=== PATIENT | female | born 1955 | race Caucasian/White ===

== ENCOUNTER → 2017-01-18 | Outpatient (CLI) | payer OTHER | LOC: MC.RAD 07:40 | DX: Z12.31 Encounter for screening mammogram for malignant neoplasm of breast (principal) ==

== ENCOUNTER → 2017-01-18 | Outpatient (CLI) | payer OTHER ==
[2017-01-18 07:53] LABS: BASO % 0.5 % (0.0-2.0); EOS # 0.2 (0.0-0.7); EOS % 2.6 % (0-4.0); GRAN % 51.6 % (42.2-75.2); HEMOGLOBIN 13.6 g/dl (12.5-16.0); LYMPH # 2.2 (1.2-3.4); MEAN CELL VOLUME 90 fl (80.0-100.0); MEAN CORPUSCULAR HEMOGLOBIN 30 pg (27.0-31.0); MEAN CORPUSCULAR HGB CONC 33 g/dl (33.0-37.0); MEAN PLATELET VOLUME 10.1 fl (7.4-10.4); MONO # 0.5 (0.1-0.6); PLATELET COUNT 261 K/mm3 (130-400); RED BLOOD COUNT 4.54 M/mm3 (4.10-5.30); WHITE BLOOD COUNT 5.9 K/mm3 (4.8-10.8)
[2017-01-18 08:13] LABS: ADJUSTED CALCIUM 9.3 mg/dL (8.4-10.2); ALBUMIN 4.7 gm/dL (3.5-5.0); BILIRUBIN,TOTAL 0.9 mg/dL (0.0-1.0); CALCIUM 9.9 mg/dL (8.4-10.2); CREATININE, serum 0.91 mg/dL (0.52-1.25); POTASSIUM 4.1 mmol/L (3.4-5.0); TOTAL PROTEIN 8.1 gm/dL (6.4-8.2)
[2017-01-18 08:36] LABS: SQUAMOUS EPITHELIAL 0-2 /hpf; URINE BACTERIA None Seen /hpf; URINE RBC None Seen /hpf; URINE WBC 0-2 /hpf
[2017-01-18 08:42] LABS: THYROID STIMULATING HORMONE 3.25 uIU/mL (0.465-4.680)
== END ==
LOC: COL.LAB 07:15
PROVIDERS: Internal Medicine
DX: E78.5 Hyperlipidemia, unspecified (principal); Z00.00 Encounter for general adult medical examination without abnormal findings

== ENCOUNTER → 2017-03-06 | Outpatient (REF) | LOC: WSOH 16:15 | DX: Z02.89 Encounter for other administrative examinations (principal) ==

== ENCOUNTER → 2017-06-29 | Outpatient (CLI) | payer OTHER ==
[2017-06-29 08:34] LABS: HEMATOCRIT 41.6 % (37.0-47.0); HEMOGLOBIN 13.5 g/dl (12.5-16.0); MEAN CELL VOLUME 92 fl (80.0-100.0); MEAN CORPUSCULAR HEMOGLOBIN 30 pg (27.0-31.0); MEAN CORPUSCULAR HGB CONC 33 g/dl (33.0-37.0); MEAN PLATELET VOLUME 10.6 fl (7.4-10.4); PLATELET COUNT 276 K/mm3 (130-400); RED BLOOD COUNT 4.52 M/mm3 (4.10-5.30); REDCELL DISTRIBUTION WIDTH-CV 13.1 % (11.5-14.5)
[2017-06-29 08:36] LABS: MUCOUS Present /lpf; PH 6 (5-8); SQUAMOUS EPITHELIAL 0-2 /hpf; URINE APPEARANCE Clear; URINE BACTERIA None Seen /hpf; URINE BILIRUBIN Negative (NEGATIVE); URINE BLOOD Negative (NEGATIVE); URINE COLOR Yellow; URINE GLUCOSE Negative (NEGATIVE); URINE KETONE Negative (NEGATIVE); URINE LEUKOCYTE ESTERASE 1+ (NEGATIVE); URINE NITRATE Negative (NEGATIVE); URINE PROTEIN(semi-quant) Negative (NEGATIVE); URINE RBC 0-2 /hpf; URINE UROBILINOGEN Negative (NEGATIVE); URINE WBC 0-2 /hpf
[2017-06-29 08:39] LABS: COLLECTION METHOD CLEAN CATCH
[2017-06-29 09:00] LABS: ALBUMIN 4.9 gm/dL (3.5-5.0); BILIRUBIN,TOTAL 0.5 mg/dL (0.0-1.0); CALCIUM 9.6 mg/dL (8.4-10.2); CREATININE, serum 0.91 mg/dL (0.52-1.25); POTASSIUM 4.1 mmol/L (3.4-5.0); TOTAL PROTEIN 8.1 gm/dL (6.4-8.2)
== END ==
LOC: COL.CARD 06:42
PROVIDERS: Obstetrics & Gynecology
DX: N81.5 Vaginal enterocele (principal)

== ENCOUNTER 2017-07-07 12:07 | Inpatient (IN) | payer OTHER ==
[~2017-07-07] VITALS: Ht 165.1 cm; Wt 80.2 kg
[2017-07-17] VITALS (12 sets, daily range): BP systolic 88–134; BP diastolic 43–77; PULSE 58–81; TEMP 97.8–98.5
[2017-07-17] MEDS ORDERED: EFFEXOR-XR150 MG PO (07:22)
[2017-07-17] MEDS ORDERED: ZOCOR 20MG20 MG PO (07:23)
[2017-07-17] MEDS ORDERED: ZYRTEC 10MG10 MG PO (07:23)
[2017-07-17] MEDS ORDERED: NASACORT OTC NS (07:24)
[2017-07-17] MEDS ORDERED: SUDAFED30 MG PO (07:24)
[2017-07-17] MEDS ORDERED: XANAX .25M0.25 MG/TA PO (07:25)
[2017-07-17] MEDS ORDERED: EPA FISH OIL1 SGL PO (07:25)
[2017-07-17] MEDS ORDERED: WOMEN'S DAILY1 TAB PO ×2 (07:26→07:27)
[2017-07-17] MEDS ORDERED: ASPIRIN 81M81 MG/TA2 PO (07:26)
[2017-07-17] MEDS ORDERED: VITAMIN C500 MG PO (07:27)
[2017-07-17] MEDS ORDERED: PHARMASSURE ZIN50 MG PO (07:27)
[2017-07-17] MEDS ORDERED: CALCITRATE 3151 TAB PO (07:29)
[2017-07-17] MEDS ORDERED: VITAMIND3 5000 (07:30)
[2017-07-17] MEDS ORDERED: ANTIVERT 25MG25 MG PO (08:01)
[2017-07-18 05:16] VITALS: BP 104/58; PULSE 75; TEMP 98.7
[2017-07-18 07:00] VITALS: BP 102/57; PULSE 65; TEMP 98.4
[2017-07-18] MEDS ORDERED: IBU600 MG PO (08:29)
[2017-07-18] MEDS ORDERED: PERCOCET 325 MG1 TA2 PO (08:30)
[2017-07-18 09:23] VITALS: BP 108/62; PULSE 72; TEMP 98.2
== END 2017-07-18 13:05 | disposition home or self-care (01) | DRG 748 ==
LOC: INPTSU 07-17 06:53 → SURG 07-17 09:00 → OB 07-17 21:25
PROVIDERS: Obstetrics & Gynecology
PROC: 0USG0ZZ Reposition Vagina, Open Approach (ICD-10-PCS; principal; 2017-07-17 09:00)
PROC: 0JQC0ZZ Repair Pelvic Region Subcutaneous Tissue and Fascia, Open Approach (ICD-10-PCS; 2017-07-17 09:00)
DX: N81.2 Incomplete uterovaginal prolapse (principal); G47.33 Obstructive sleep apnea (adult) (pediatric)
CPT/HCPCS: A4314; C2631; J0690; J2704; J2765; J7120

== ENCOUNTER → 2017-09-14 | Outpatient (CLI) | payer OTHER ==
[~2017-09-14] MED LIST: ANTIVERT 25MG25 MG PO; ASPIRIN 81M81 MG/TA2 PO; CALCITRATE 3151 TAB PO; EFFEXOR-XR150 MG PO; EPA FISH OIL1 SGL PO; IBU600 MG PO; NASACORT OTC NS; PERCOCET 325 MG1 TA2 PO; PHARMASSURE ZIN50 MG PO; SUDAFED30 MG PO; VITAMIN C500 MG PO; VITAMIND3 5000; WOMEN'S DAILY1 TAB PO; XANAX .25M0.25 MG/TA PO; ZOCOR 20MG20 MG PO; ZYRTEC 10MG10 MG PO
[2017-09-14 08:40] LABS: ALBUMIN 4.3 gm/dL (3.5-5.0); BILIRUBIN,TOTAL 0.5 mg/dL (0.0-1.0); CALCIUM 9.4 mg/dL (8.4-10.2); CREATININE, serum 0.88 mg/dL (0.52-1.25); POTASSIUM 4.3 mmol/L (3.4-5.0); TOTAL PROTEIN 7.7 gm/dL (6.4-8.2)
== END ==
LOC: COL.LAB 08:14
PROVIDERS: Internal Medicine
DX: R73.01 Impaired fasting glucose (principal); R74.0 Nonspecific elevation of levels of transaminase and lactic acid dehydrogenase [LDH]

== ENCOUNTER → 2017-11-08 | Outpatient (CLI) | payer OTHER | LOC: SUN.DIA 13:00 | DX: R73.03 Prediabetes (principal); R73.01 Impaired fasting glucose | CPT/HCPCS: G0108 ==

== ENCOUNTER → 2018-06-06 | Outpatient (CLI) | payer OTHER ==
[~2018-06-06] MED LIST changes: +FORT1000TA PO; -VITAMIND3 5000; +VITAMIND3 5000 PO
== END ==
LOC: MC.RAD 15:00
DX: Z12.31 Encounter for screening mammogram for malignant neoplasm of breast (principal)

== ENCOUNTER 2018-06-08 08:48 | Day surgery (SDC) | payer OTHER ==
[~2018-06-08] VITALS: Ht 165.1 cm; Wt 75.5 kg
[~2018-06-08 08:48] MED LIST changes: -FORT1000TA PO
[2018-06-08] MEDS ORDERED: FORT1000TA PO (09:11)
[2018-06-08 09:46] VITALS: BP 118/73; PULSE 74; TEMP 97.7
[2018-06-08 10:45] VITALS: BP 100/69; PULSE 63; TEMP 97.8
[2018-06-08 11:00] VITALS: BP 111/67; PULSE 65
[2018-06-08 11:15] VITALS: BP 115/68; PULSE 75
[2018-06-08 11:30] VITALS: BP 112/68; PULSE 69
[2018-06-08 11:45] VITALS: BP 103/76; PULSE 73
== END 2018-06-08 12:10 | disposition home or self-care (01) ==
LOC: SDCO 08:48
DX: Z12.11 Encounter for screening for malignant neoplasm of colon (principal); Z86.010 Personal history of colon polyps; R13.13 Dysphagia, pharyngeal phase; K21.9 Gastro-esophageal reflux disease without esophagitis; G47.33 Obstructive sleep apnea (adult) (pediatric); E11.9 Type 2 diabetes mellitus without complications; Z79.82 Long term (current) use of aspirin; Z79.899 Other long term (current) drug therapy; Z79.84 Long term (current) use of oral hypoglycemic drugs; E78.00 Pure hypercholesterolemia, unspecified
CPT/HCPCS: J2250; J2405; J3010; J7030

== ENCOUNTER 2018-09-21 05:44 | Day surgery (SDC) | payer OTHER ==
[~2018-09-21] VITALS: Ht 165.1 cm; Wt 79.9 kg
[~2018-09-21 05:44] MED LIST changes: +FORT1000TA PO
[2018-09-21 06:31] VITALS: BP 123/71; PULSE 74; TEMP 97.5
[2018-09-21] MEDS ORDERED: TURMERIC500 MG PO (07:01)
[2018-09-21 08:12] VITALS: BP 102/61; PULSE 70
--- NOTE | 2018-09-21 08:12 | NUR ---
Patient returns to room per cart from surgery and is awake and alert. Dressing clean and dry on the right forearm. IV fluids infusing and site is free of redness. Temp 97.5 and room air sats 96%. Siderails up x2 and call light in reach. Spouse in room. Drinking water and coffee.
[2018-09-21 08:27] VITALS: BP 112/74; PULSE 72
--- NOTE | 2018-09-21 08:27 | NUR ---
Denies pain or nausea. Eating toast and applesauce.
[2018-09-21] MEDS ORDERED: NORCO 325 MG-51 TAB PO (08:40)
[2018-09-21 08:42] VITALS: BP 120/80; PULSE 70
--- NOTE | 2018-09-21 08:42 | NUR ---
Talking with spouse. Continues to drink coffee and drink water. Denies pain or nausea.
--- NOTE | 2018-09-21 08:50 | NUR ---
IV discontinued and dresses self. Spouse remains in room.
--- NOTE | 2018-09-21 09:08 | NUR ---
Given dismissal instructions. Voices understanding of home cares and follow up appointment. Instructed that she may remove dressing Monday and shower and get incision wet. Instructed to use ice and keep the right arm elevated above the level of heart.
--- NOTE | 2018-09-21 09:10 | NUR ---
Patient dismissed to home per private vehicle driven by spouse and taken to the front door per wheelchair by RN and assisted into vehicle. Provided script for [place].
== END 2018-09-21 09:10 | disposition home or self-care (01) ==
LOC: SDCO 05:44
DX: M67.431 Ganglion, right wrist (principal); Z79.82 Long term (current) use of aspirin; Z79.899 Other long term (current) drug therapy; E11.9 Type 2 diabetes mellitus without complications; Z79.84 Long term (current) use of oral hypoglycemic drugs; F32.9 Major depressive disorder, single episode, unspecified; Z82.49 Family history of ischemic heart disease and other diseases of the circulatory system; Z83.3 Family history of diabetes mellitus; Z80.9 Family history of malignant neoplasm, unspecified; G47.33 Obstructive sleep apnea (adult) (pediatric); M51.36 Other intervertebral disc degeneration, lumbar region; F41.9 Anxiety disorder, unspecified
CPT/HCPCS: J0690; J2704; J7030

== ENCOUNTER → 2019-04-25 | Outpatient (CLI) | payer OTHER ==
[~2019-04-25] MED LIST changes: +NORCO 325 MG-51 TAB PO; +TURMERIC500 MG PO
[2019-04-25 10:03] LABS: BASO % 0.4 % (0.0-2.0); EOS # 0.1 (0.0-0.7); EOS % 2.9 % (0-4.0); GRAN # 2.5 (1.4-6.5); GRAN % 52.1 % (42.2-75.2); HEMATOCRIT 37.8 % (37.0-47.0); HEMOGLOBIN 12.4 g/dl (12.5-16.0); LYMPH # 1.8 (1.2-3.4); LYMPH % 37.1 % (20.0-51.0); MEAN CELL VOLUME 91 fl (80.0-100.0); MEAN CORPUSCULAR HEMOGLOBIN 30 pg (27.0-31.0); MEAN CORPUSCULAR HGB CONC 33 g/dl (33.0-37.0); MEAN PLATELET VOLUME 9.8 fl (7.4-10.4); MONO # 0.4 (0.1-0.6); MONO % 7.3 % (1.7-9.3); PLATELET COUNT 249 K/mm3 (130-400); RED BLOOD COUNT 4.14 M/mm3 (4.10-5.30); REDCELL DISTRIBUTION WIDTH-CV 13.1 % (11.5-14.5)
[2019-04-25 10:36] LABS: ALBUMIN 4.4 gm/dL (3.5-5.0); BILIRUBIN,TOTAL 0.4 mg/dL (0.0-1.0); CALCIUM 9.4 mg/dL (8.4-10.2); CREATININE, serum 0.77 (0.52-1.25); POTASSIUM 4.2 mmol/L (3.4-5.0); TOTAL PROTEIN 7.3 gm/dL (6.4-8.2)
== END ==
LOC: COL.LAB 09:42
PROVIDERS: Nurse Practitioner
DX: F32.9 Major depressive disorder, single episode, unspecified (principal); R73.01 Impaired fasting glucose

== ENCOUNTER → 2019-07-04 | Outpatient (CLI) | payer OTHER ==
[2019-07-04 08:44] LABS: CHOLESTEROL RISK RATIO 4.2
[2019-07-04 19:01] LABS: HEPATITIS C VIRUS ANTIBODY Negative (Negative)
== END ==
LOC: COL.LAB 08:09
PROVIDERS: Internal Medicine
DX: Z00.00 Encounter for general adult medical examination without abnormal findings (principal)

== ENCOUNTER → 2019-08-02 | Outpatient (CLI) | payer OTHER | LOC: MC.RAD 10:23 | DX: Z12.31 Encounter for screening mammogram for malignant neoplasm of breast (principal) ==

== ENCOUNTER → 2020-06-02 | Outpatient (CLI) | payer OTHER ==
[2020-06-02 08:58] LABS: COLLECTION METHOD CLEAN CATCH
[2020-06-02 09:07] LABS: BASO % 0.6 % (0.0-2.0); EOS # 0.2 (0.0-0.7); EOS % 2.3 % (0-4.0); GRAN # 4.1 (1.4-6.5); GRAN % 57.7 % (42.2-75.2); HEMATOCRIT 43.1 % (37.0-47.0); HEMOGLOBIN 13.7 g/dl (12.5-16.0); LYMPH # 2.3 (1.2-3.4); MEAN CELL VOLUME 92 fl (80.0-100.0); MEAN CORPUSCULAR HEMOGLOBIN 29 pg (27.0-31.0); MEAN CORPUSCULAR HGB CONC 32 g/dl (33.0-37.0); MEAN PLATELET VOLUME 9.7 fl (7.4-10.4); MONO # 0.4 (0.1-0.6); MONO % 6.3 % (1.7-9.3); PLATELET COUNT 335 K/mm3 (130-400); RED BLOOD COUNT 4.69 M/mm3 (4.10-5.30)
[2020-06-02 09:15] LABS: ALBUMIN 4.9 gm/dL (3.5-5.0); BILIRUBIN,TOTAL 0.6 mg/dL (0.0-1.0); CALCIUM 9.7 mg/dL (8.4-10.2); CHOLESTEROL RISK RATIO 4.1; CREATININE, serum 0.92 (0.52-1.25); TOTAL PROTEIN 8.3 gm/dL (6.4-8.2)
[2020-06-02 09:17] LABS: PH 7 (5-8); SQUAMOUS EPITHELIAL 0-2 /hpf; URINE APPEARANCE Clear; URINE BACTERIA None Seen /hpf; URINE BILIRUBIN Negative (NEGATIVE); URINE BLOOD Negative (NEGATIVE); URINE COLOR Yellow; URINE GLUCOSE Negative (NEGATIVE); URINE KETONE Negative (NEGATIVE); URINE LEUKOCYTE ESTERASE Negative (NEGATIVE); URINE NITRATE Negative (NEGATIVE); URINE PROTEIN(semi-quant) Negative (NEGATIVE); URINE RBC None Seen /hpf; URINE UROBILINOGEN Negative (NEGATIVE); URINE WBC 0-2 /hpf
== END ==
LOC: COL.LAB 08:13
PROVIDERS: Internal Medicine
DX: Z00.00 Encounter for general adult medical examination without abnormal findings (principal)

== ENCOUNTER → 2020-08-07 | Outpatient (CLI) | payer OTHER | LOC: MC.RAD 10:15 | DX: Z12.31 Encounter for screening mammogram for malignant neoplasm of breast (principal) ==

== ENCOUNTER → 2021-01-26 | Outpatient (CLI) | payer OTHER ==
[2021-01-26 08:57] LABS: CHOLESTEROL RISK RATIO 4.1
== END ==
LOC: COL.LAB 07:59
PROVIDERS: Internal Medicine
DX: E78.5 Hyperlipidemia, unspecified (principal); E78.2 Mixed hyperlipidemia; Z87.898 Personal history of other specified conditions

== ENCOUNTER 2021-03-05 09:30 | Outpatient (RCR) | payer OTHER | END 2021-03-11 08:08 | disposition home or self-care (01) | LOC: MKS.ESL.PT 09:30 | DX: H81.13 Benign paroxysmal vertigo, bilateral (principal) ==

== ENCOUNTER → 2021-06-25 | Outpatient (CLI) | payer OTHER ==
[2021-06-25 09:45] LABS: BASO % 0.7 % (0.0-2.0); EOS # 0.2 K/mm3 (0.0-0.7); EOS % 3.4 % (0.0-4.0); GRAN # 3.1 K/mm3 (1.4-6.5); GRAN % 55.1 % (42.2-75.2); HEMATOCRIT 39.4 % (37.0-47.0); HEMOGLOBIN 13.1 g/dl (12.5-16.0); LYMPH # 1.9 K/mm3 (1.2-3.4); LYMPH % 33.6 % (20.0-51.0); MEAN CELL VOLUME 90 fl (80.0-100.0); MEAN CORPUSCULAR HEMOGLOBIN 30 pg (27-31); MEAN CORPUSCULAR HGB CONC 33 g/dl (33.0-37.0); MEAN PLATELET VOLUME 9.9 fl (7.4-10.4); MONO # 0.4 K/mm3 (0.1-0.6); PLATELET COUNT 287 K/mm3 (130-400); REDCELL DISTRIBUTION WIDTH-CV 13.3 % (11.5-14.5)
[2021-06-25 10:10] LABS: ALBUMIN 4.1 gm/dL (3.4-4.8); BILIRUBIN,TOTAL 0.6 mg/dL (0.2-1.2); CALCIUM 9.3 mg/dL (8.4-10.2); CHOLESTEROL RISK RATIO 3.8; CREATININE, serum 0.88 mg/dL (0.57-1.11); POTASSIUM 4.4 mmol/L (3.5-4.5); TOTAL PROTEIN 7.3 gm/dL (6.2-8.1)
[2021-06-25 10:30] LABS: TSH w REFLEX 1.631 uIU/mL (0.350-4.940)
== END ==
LOC: COL.LAB 09:23
PROVIDERS: Internal Medicine
DX: Z00.00 Encounter for general adult medical examination without abnormal findings (principal); E78.2 Mixed hyperlipidemia; R73.03 Prediabetes

== ENCOUNTER → 2021-08-30 | Outpatient (CLI) | payer OTHER | LOC: MC.RAD 07:20 | DX: Z12.31 Encounter for screening mammogram for malignant neoplasm of breast (principal) ==

== ENCOUNTER → 2022-11-02 | Outpatient (CLI) | payer MEDICARE | LOC: MC.RAD 12:58 | DX: Z12.31 Encounter for screening mammogram for malignant neoplasm of breast (principal); N63.10 Unspecified lump in the right breast, unspecified quadrant ==

== ENCOUNTER → 2022-11-03 | Outpatient (CLI) | payer MEDICARE | LOC: MC.RAD 09:15 | DX: R92.8 Other abnormal and inconclusive findings on diagnostic imaging of breast (principal) ==

== ENCOUNTER → 2023-11-15 | Outpatient (CLI) | payer MEDICARE | LOC: MC.RAD 10:00 | DX: Z12.31 Encounter for screening mammogram for malignant neoplasm of breast (principal) ==